=== PATIENT | male | born 1940 | race Caucasian/White ===

== ENCOUNTER 2017-04-28 14:10 | Observation (INO) | payer MEDICARE, BC ==
[2017-04-28 14:42] LABS: #Eosinphils 0.1 thou/uL (0.0-0.7); #Lymphocytes 1.3 thou/uL (1.20-3.40); #Monocytes 0.7 thou/uL (0.11-0.59); %Basophils 0.1 % (0.0-1.0); %Eosinophils 0.7 % (0.0-10.0); %Monocytes 9.1 % (0.0-10.0); Hematocrit 39.5 % (42.0-52.0); Mean Platelet Volume 7.8 fL (7.4-10.4); Red Blood Cell (RBC) Count 4.22 mill/uL (4.70-6.10); White Blood Cell (WBC) Count 8.1 thou/uL (4.8-10.8)
[2017-04-28 14:59] LABS: ALT (SGPT) 11 U/L (8-55); AST (SGOT) 12 U/L (5-34); Alkaline Phosphatase 80 U/L (40-150); Anion Gap 13 mmol/L (10-20); BUN (Urea Nitrogen) 14 mg/dL (8.4-25.7); Bilirubin, Total 0.7 mg/dL (0.2-1.2); CK (CPK) 189 U/L (30-200); Calc. Creatinine Clearance 0 mL/min (70-130); Calcium 8.9 mg/dL (7.8-10.44); Carbon Dioxide 26 mmol/L (23-31); Chloride 101 mmol/L (98-107); Estimated GFR-MDRD 74; Globulin 3.6 g/dL (2.4-3.5); Lipase 16 U/L (8-78); Protein, Total 7.4 g/dL (5.8-8.1)
[2017-04-28 15:03] LABS: Troponin I Less than 0.010 ng/mL (< 0.028)
--- NOTE | 2017-04-28 15:49 | RAD ---
PORTABLE CHEST ONE VIEW 04/28/2017 AT 2:30 p.m.: HISTORY: Chest pain. FINDINGS: Comparison is made with the exam of 12/29/2009. Change of median sternotomy again seen. The heart size is borderline. The lungs are expanded witho ut focal areas of consolidation, pneumothorax, karina pleural edema, or pleural effusions. IMPRESSION: No radiographic evidence of acute cardiopulmonary process. POS: SAYRA
[2017-04-28] MEDS ORDERED: Ondansetron ODT 4 MG TAB SL PRN (17:56)
[2017-04-28] MEDS ORDERED: Acetaminophen 325 MG TAB PO PRN (17:56)
[2017-04-28] MEDS ORDERED: Ondansetron HCl/PF 4 MG/2 ML Vial IVP PRN ×2 (17:56→18:33)
[2017-04-28 18:07] LABS: Troponin I Less than 0.010 ng/mL (< 0.028)
[2017-04-28 18:11] VITALS: BMI 23.7
[2017-04-28] MEDS ORDERED: Dextrose 50% Abboject 50 ML SYRINGE SLOW IVP PRN (18:33)
[2017-04-28] MEDS ORDERED: cloNIDine 0.1 MG TAB PO PRN (18:33)
[2017-04-28] MEDS ORDERED: hydrALAZINE 20 MG/ML VIAL SLOW IVP PRN (18:33)
[2017-04-28] MEDS ORDERED: Dextrose 5% in Water 1,000 ML IV PRN (18:33)
[2017-04-28] MEDS ORDERED: Ondansetron ODT 4 MG TAB PO PRN (18:33)
[2017-04-28] MEDS ORDERED: Nitroglycerin 0.4 MG TAB (25 Tab Bottle) SL PRN (18:33)
[2017-04-28] MEDS ORDERED: Acetaminophen 500 MG TAB PO PRN (18:33)
[2017-04-28] MEDS ORDERED: HumaLOG 300 UNITS/3 ML VIAL SC PRN ×2 (18:33)
[2017-04-28] MEDS: Famotidine 20 MG TAB PO SCH (20:45)
[2017-04-28 20:58] LABS: Troponin I Less than 0.010 ng/mL (< 0.028)
--- NOTE | 2017-04-28 23:36 | HP ---
DATE OF ADMISSION: 04/28/2017 PRIMARY CARE PROVIDER: Dr. Ivan Hudson at [facility]. PRIMARY HOT STRIP MILL SUPERVISOR: Dr. Ridge Mejia. CHIEF COMPLAINT: Chest pain. HISTORY OF PRESENT ILLNESS: This is a 77-year-old male who presents to [facility] Emergency Room complaining of central left-sided sharp chest pain that was intermitt ent initiated at rest. The patient states he had been lifting a large metal structure that holds ro und hay ilana when it suddenly fell back and struck him in the head, knocking him to the ground. Th e patient states this occurred within the last 24 hours, then noticed pain in his left anterior ches t area. The patient states the pain became more frequent lasting seconds to a minute becoming more intense. The patient became concerned about the pain in his chest stating he had a previous myocard ial infarction in 2002. Patient underwent initial PCI with angioplasty and stent placement to the m id and distal LAD in 09/2002. The patient was subsequently placed on antiplatelet therapy with Plav ix and aspirin and monitored on an outpatient basis. The patient states that in 2009, the patient u nderwent cardiac catheterization showing complete occlusion of the LAD stents previously placed in 2 003 with recommendations to undergo coronary artery bypass grafting due to severe three-vessel coron melly artery disease. Patient underwent the procedure in 12/2009, sustaining coronary artery bypass g rafting x3 vessels with left internal mammary to the diagonal, reverse saphenous vein graft to obtus e marginal, and reverse saphenous vein graft to posterior descending artery. The patient states he has been followed by his inside plant supervisor on an outpatient basis; however, states his last stress test w as possibly 4-5 years prior to this evaluation. 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 The patient denied any specific mery nge to his chronic medication regimen other than the adjustment to glipizide previously on glyburide . The patient states he takes aspirin and Plavix on a daily basis. In the Emergency Room, the ki ent underwent general evaluation including chest imaging that showed no acute infiltrate. Metabolic survey showed no evidence of elevated troponin I and EKG showed no acute changes. The patient was treated with aspirin 324 mg x1 dose and referred to the Hospitalist Service for evaluation. PAST MEDICAL HISTORY: 1. Coronary artery disease. 2. Status post myocardial infarction, status post PCI with cardiac stent placement x4 to LAD. 3. Diabetes mellitus type 2. 4. Hypertension. 5. Dyslipidemia. 6. Ischemic cardiomyopathy with ejection fraction in the 30% range in 2010. PAST SURGICAL HISTORY: 1. Status post sphincterotomy of the distal common bile duct. 2. Status post percutaneous coronary intervention with cardiac stent placement x4 in 2002. 3. Status post left heart cardiac catheterization in 2009. 4. Status post coronary artery bypass grafting x3 vessels in 2009. CURRENT MEDICATIONS: 1. Aspirin 81 mg 1 tab p.o. daily. 2. Plavix 75 mg 1 tab p.o. daily. 3. Coreg 12.5 mg p.o. b.i.d. 4. Lisinopril 10 mg 1 tab p.o. daily. 5. Zocor 40 mg p.o. at bedtime. 6. Glipizide 5 mg p.o. daily. 7. Metformin 1000 mg p.o. b.i.d. 8. Januvia 100 mg p.o. daily. ALLERGIES: No known drug allergies. FAMILY HISTORY: Positive for hypertension. SOCIAL HISTORY: The patient is , accompanied by multiple family members in the hospital. sides near [place], [place]. 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 No current alcohol, tobacco or illicit drug use. Functional of all activities of daily living. REVIEW OF SYSTEMS: The following complete review of systems was negative, unless otherwise mentione d in the HPI or below: Constitutional: Weight loss or gain, ability to conduct usual activities. Skin: Rash, itching. Eyes: Double vision, pain. ENT/Mouth: Nose bleeding, neck stiffness, pain, tenderness. Cardiovas cular: Palpitations, dyspnea on exertion, orthopnea. Respiratory: Shortness of breath, wheezing, cough, hemoptysis, fever or night sweats. Gastrointestinal: Poor appetite, abdominal pain, heartbu rn, nausea, vomiting, constipation, or diarrhea. Genitourinary: Urgency, frequency, dysuria, noctu dioni. Musculoskeletal: Pain, swelling. Neurologic/Psychiatric: Anxiety, depression. Allergy/Immu nologic: Skin rash, bleeding tendency. PHYSICAL EXAMINATION: VITAL SIGNS: Currently, blood pressure 115/66, pulse 64, respiratory rate 18, temperature 98.6 degr ees Fahrenheit, O2 saturation 98% on room air. GENERAL APPEARANCE: This is a 77-year-old male, alert and oriented x3, pleasant, conversa nt, in no acute distress. HEENT: Pupils are equal, round, and reactive to light and accommodation. Extraocular muscles are i ntact. No scleral icterus, no conjunctival injection. Nares patent. OP is clear. Teeth in good r epair. NECK: Supple, no cervical adenopathy, no thyromegaly, no carotid bruits, no JVD appreciated. Cervi kaylyn spine with full active and passive range of motion. CHEST: Lungs are clear to auscultation bilaterally. CARDIOVASCULAR: S1, S2, without noted murmur. ABDOMEN: Rounded, soft, nontender, nondistended. Bowel sounds are positive in all four quadrants. There is no hepatosplenomegaly, no abdominal bruits, no rebound or guarding appreciated. EXTREMITIES: Warm and dry with good turgor. No clubbing, cyanosis or asymmetric edema appreciated. Pulses palpable distally at the dorsalis pedis, posterior tibial, and popliteal arteries bilateral ly. Capillary refill less than 2 seconds. NEUROLOGIC: Cranial nerves II-XII are grossly intact. No focal or lateralizing signs appreciated. PERTINENT LABORATORY AND X-RAY FINDINGS: Basic metabolic profile within normal limits. Glucose 119 , alkaline phosphatase 80. LFTs within normal limits. Troponin I negative x2. Albumin 3.8, lipase 16. CBC showed a white blood cell count 8.1, hemoglobin 14, hematocrit 40, platelet count 180 with normal differential. Portable chest x-ray dated 04/28/2017 showed no acute cardiopulmonary process . EKG dated 04/28/2017 by my interpretation shows a sinus mechanism with heart rates in the 70s. A ttenuated R waves in the entire precordium. Normal axis. No acute ST-T wave changes appreciated. Old T-wave inversion noted in V5 and V6. ASSESSMENT AND PLAN: 1. Chest pain. The patient will be placed in observation status. We will proceed with Cardiolite stress test in the a.m. Check fasting lipid profile. Continue aspirin and Plavix. No current evid ence to suggest acute coronary syndrome. 2. Hypertension. Resume home antihypertensive regimen including, Coreg 12.5 mg p.o. b.i.d. and lis inopril 10 mg p.o. daily. Continue serial blood pressure assessment. 3. Diabetes mellitus type 2. Insulin sliding scale for reflexive coverage. Continue glipizide and Januvia. Accu-Cheks before meals and at bedtime. ADA diet. 4. Hyperlipidemia. Check fasting lipid profile in the a.m. Continue Zocor 40 mg p.o. at bedtime. 5. Prophylaxis. Sequential compression devices while in bed. Pepcid 20 mg p.o. b.i.d. 6. Code status is FULL. Surrogate medical decision maker is patient's spouse.
[2017-04-29 04:11] VITALS: TEMP 98.8
[2017-04-29 04:54] LABS: Anion Gap 11 mmol/L (10-20); BUN (Urea Nitrogen) 12 mg/dL (8.4-25.7); Calc. Creatinine Clearance 75 mL/min (70-130); Carbon Dioxide 28 mmol/L (23-31); Chloride 103 mmol/L (98-107); Cholesterol 124 mg/dl (< 200 Desired); Estimated GFR-MDRD 85; LDL Cholesterol, Calculated 72 mg/dL; Mean Platelet Volume 7.8 fL (7.4-10.4); Neutrophil 56 % (42-75); Reactive Lymphocytes 1 % (0-10); Red Blood Cell (RBC) Count 3.95 mill/uL (4.70-6.10); White Blood Cell (WBC) Count 6.9 thou/uL (4.8-10.8)
[2017-04-29] MEDS ORDERED: Aspirin 325 MG TAB PO SCH (08:00)
[2017-04-29 08:15] VITALS: BP 131/60
[2017-04-29] MEDS: Famotidine 20 MG TAB PO SCH (09:37)
[2017-04-29] MEDS ORDERED: ADENOSINE 60 MG/20 ML VIAL ONE (12:00)
--- NOTE | 2017-04-29 12:41 | NM ---
CARDIAC SPECT: CLINICAL HISTORY: 77-year-old male with chest pain, coronary artery disease, DE, CABG, stent placement, diabetes, hype rtension, and dyslipidemia. TECHNIQUE: A myocardial perfusion scan was performed using the single isotope one day protocol with technetium- 99m sestamibi. 9 mCi were injected intravenously for the rest exam followed by 31 mCi for the stress exam. Pharmacologic stress with Adenosine was monitored and interpreted by Dr. Herrera. FINDINGS: There are fixed defects in the apex, distal anteroseptal wall, mid anterior wall, and distal inferol ateral wall. No reversible defects are identified. GATED SPECT LVEF: 40%. WALL MOTION EXAM: Global hypokinesis. IMPRESSION: 1. No evidence of reversible ischemia. 2. Scarring involving the apex, distal anteroseptal, mid anterior, and distal inferolateral meza. POS: VALENTIN
--- NOTE | 2017-04-29 13:11 | PDOC.PN ---
- Subjective Encounter Start Date: 04/29/17 Encounter Start Time: 13:10 Mr. Arroyo is feeling much better today. He denies chest pain or difficulty breathing. - Objective Resuscitation Status: Resuscitation Status FULL:Full Resuscitation MAR Reviewed: Yes Vital Signs & Weight: Vital Signs (12 hours) Temp Pulse Resp BP Pulse Ox 04/29/17 08:00 98.8 F 61 131/60 95 04/29/17 07:45 98.8 F 61 18 04/29/17 04:10 98.8 F 63 18 133/60 96 I&O: 04/28/17 04/29/17 04/30/17 06:59 06:59 06:59 Intake Total 480 Output Total 0 Balance 480 Result Diagrams: 04/29/17 04:05 04/29/17 04:05 Additional Labs: Accuchecks 04/28/17 20:45 POC Glucose 151 H Phys Exam - Physical Examination HEENT: PERRLA Respiratory: no wheezing, no rales, no rhonchi, clear to auscultation bilateral Cardiovascular: RRR, no significant murmur Gastrointestinal: soft, non-tender, positive bowel sounds Musculoskeletal: no edema Dx/Plan (1) Chest pain Code(s): R07.9 - CHEST PAIN, UNSPECIFIED Status: Acute (2) Musculoskeletal strain Code(s): T14.8XXA - OTHER INJURY OF UNSPECIFIED BODY REGION, INITIAL ENCOUNTER Status: Acute (3) Coronary artery disease Code(s): I25.10 - ATHSCL HEART DISEASE OF [place] CORONARY ARTERY W/O ANG PCTRS Status: Acute (4) Hypertension Code(s): I10 - ESSENTIAL (PRIMARY) HYPERTENSION Status: Acute (5) Diabetes mellitus type 2 in nonobese Code(s): E11.9 - TYPE 2 DIABETES MELLITUS WITHOUT COMPLICATIONS Status: Acute - Plan * Chest pain- patient's stress test is negative * I suspect the patient pain may be due to a musculoskeletal strain * stable for discharge home.
--- NOTE | 2017-04-29 15:02 | DIS ---
DATE OF ADMISSION: 04/28/2017 DATE OF DISCHARGE: 04/29/2017 PRIMARY CARE PHYSICIAN: Dr. Ivan Hudson DISCHARGE DISPOSITION: Home. PRIMARY DISCHARGE DIAGNOSES: 1. Chest pain. 2. Musculoskeletal strain. 3. Coronary artery disease. 4. Diabetes mellitus, type 2. 5. Hypertension. 6. Dyslipidemia. 7. Ischemic cardiomyopathy with last known ejection fraction of 30%. DISCHARGE MEDICATIONS: The same as that on admission and includes aspirin 81 mg daily, Plavix 75 mg daily, metformin 1000 mg twice a day, Januvia 100 mg daily, glipizide extended release 5 mg daily, simvastatin 40 mg daily, lisinopril 10 mg daily, and carvedilol 12.5 mg twice a day. PROCEDURES DONE DURING THE ADMISSION: The patient had a nuclear stress test which was negative for any reversible ischemia. There was some scarring involving the apex, distal anterior septal, mid an terior, and distal inferior lateral wall CODE STATUS: FULL CODE. ALLERGIES: No known drug allergies. HOSPITAL COURSE: Ms. Arroyo is a pleasant 77-year-old gentleman who was doing some work on his f arm when he was trying to lift a large metal hay bale mack and it fell back and struck him in the head and knocked him to the ground. He began having chest pain after this. He was concerned becaus e he has a history of heart disease, but may be the chest pain could be related to his heart. He wa s placed in observation and ruled out and a nuclear stress test was negative. He is feeling much be tter today than yesterday and it is suspected that his symptoms are likely related to the accident h e had yesterday plus he was lifting quite a few heavy bags of feed as well, so therefore it is suspe cted that the pain is related to a musculoskeletal strain. There will be no changes in his home med ications and he is subsequently being discharged home to have a close followup with Dr. Hudson in 1-2 weeks.
== END 2017-04-29 13:59 | disposition home or self-care (01) ==
LOC: ERS 14:10 → 2SW 18:02
PROVIDERS: ADMIT Family Medicine; ATTEND Family Medicine
DX: R07.9 Chest pain, unspecified (principal); I25.10 Atherosclerotic heart disease of native coronary artery without angina pectoris; E11.9 Type 2 diabetes mellitus without complications; E78.5 Hyperlipidemia, unspecified; I11.9 Hypertensive heart disease without heart failure; I25.2 Old myocardial infarction; T14.8XXA Other injury of unspecified body region, initial encounter; Z79.84 Long term (current) use of oral hypoglycemic drugs; Z79.02 Long term (current) use of antithrombotics/antiplatelets; Z79.82 Long term (current) use of aspirin; Z79.899 Other long term (current) drug therapy; Z95.1 Presence of aortocoronary bypass graft; Z95.818 Presence of other cardiac implants and grafts; Z98.890 Other specified postprocedural states
CPT/HCPCS: 71010; 78452; 80048; 80053; 80061; 82550; 82553; 82962; 83690; 84484 ×2; 85007; 85025; 85027; 93005; 93017; 94760 ×2; 99285; A9500; G0378; 36415; 36416; J0153

== ENCOUNTER 2019-12-23 17:09 | Emergency (ER) | payer MEDICARE, BC ==
[~2019-12-23 17:09] MED LIST: Iopamidol-370 76% 500 ML 1 ML ONE
[2019-12-23 18:14] LABS: #Monocytes 0.6 thou/uL (0.11-0.59); %Basophils 0.1 % (0.0-1.0); %Eosinophils 0.5 % (0.0-10.0); %Lymphocytes 14.2 % (21.0-51.0); %Monocytes 9.6 % (0.0-10.0); %Neutrophils 75.6 % (42.0-75.0); Hemoglobin 12.2 g/dL (14.0-18.0); Mean Corpuscular HGB CONC 33.9 g/dL (32.0-36.0); Mean Corpuscular Volume 97.5 fL (78.0-98.0); RBC Distribution Width 11.4 % (11.5-14.5); Red Blood Cell (RBC) Count 3.68 mill/uL (4.70-6.10); White Blood Cell (WBC) Count 6.7 thou/uL (4.8-10.8)
[2019-12-23] MEDS ORDERED: Dextrose 50% Abboject 50 ML SYRINGE ONE (18:23)
[2019-12-23 18:33] LABS: Mean Platelet Volume 8.2 fL (7.4-10.4); Platelet Count 119 thou/uL (130-400); Platelet Morphology Comment Appears Decreased; RBC Morphology Normal
--- NOTE | 2019-12-23 18:40 | RAD ---
SINGLE VIEW OF THE CHEST: 12/23/19 COMPARISON: 04/28/17. HISTORY: Weakness and altered mental status. Fever yesterday. FINDINGS: Single view of the chest shows a normal sized cardiomediastinal silhouette. The patient is status pos t sternotomy. There is no evidence of consolidation, mass or pleural effusion. IMPRESSION: No evidence of acute cardiopulmonary disease. POS: EAA
--- NOTE | 2019-12-23 18:57 | CT ---
CT BRAIN 12/23/19 PROVIDED CLINICAL HISTORY: Altered mental status. FINDINGS: The ventricular system appears normal in size and morphology. There is no evidence for intracranial h emorrhage or mass effect. The extracranial soft tissues and osseous structures demonstrate an unremar kable CT appearance. IMPRESSION: No evidence for intracranial hemorrhage or mass effect. POS: GEORGE
[2019-12-23 20:03] LABS: Bilirubin Negative (Negative); Blood, Urine Negative (Negative); Clarity Turbid (Clear); Glucose, Urine (Dipstick) 300 mg/dL (Negative); Leukocyte Negative Leu/uL (Negative); Nitrite Negative (Negative); Protein, Urine (Dipstick) 20 mg/dL (Neg-Trace); Urobilinogen Normal mg/dL (Less than 2)
[2019-12-23 20:21] LABS: ALT (SGPT) 101 U/L (8-55); AST (SGOT) 68 U/L (5-34); Albumin 3.5 g/dL (3.4-4.8); Alkaline Phosphatase 116 U/L (40-110); Anion Gap 14 mmol/L (10-20); BUN (Urea Nitrogen) 26 mg/dL (8.4-25.7); Bilirubin, Total 0.5 mg/dL (0.2-1.2); Calc. Creatinine Clearance 0 mL/min (70-130); Calcium 8.1 mg/dL (7.8-10.44); Carbon Dioxide 22 mmol/L (23-31); Chloride 101 mmol/L (98-107); Estimated GFR-MDRD 45; Globulin 2.9 g/dL (2.4-3.5); Glucose 164 mg/dL (83-110); Potassium 4.2 mmol/L (3.5-5.1); Protein, Total 6.4 g/dL (5.8-8.1); Sodium 133 mmol/L (136-145)
--- NOTE | 2019-12-23 21:03 | CT ---
CT ANGIOGRAM CHEST AND ABDOMEN WITH IV CONTRAST AND 3D MIP RECONSTRUCTIONS: 12/23/19 PROVIDED CLINICAL HISTORY: Fever and generalized weakness. FINDINGS: The aorta is nonaneurysmal. There is no evidence for aortic dissection. There is left ventricular api kaylyn thinning, similar to 03/24/14. Median sternotomy changes and CABG changes are seen. The lungs are free of significant opacity. There is no pleural fluid or pneumothorax apparent. The solid abdominal organs are suboptimally evaluated in the arterial phase of contrast but demonstra antony no evidence for an acute abnormality. Several subcentimeter foci of arterial enhancement are seen within the right hepatic lobe, nonspecific. There is no bowel dilatation, inflammatory fat stranding , free fluid or free air apparent within the abdomen. Atherosclerotic vascular calcification in eccen tric mural plaque are seen involving the infrarenal abdominal aorta. There is no evidence for aneurys m. The mesenteric and renal vessels demonstrate no significant stenosis. The osseous structures demonstrate no concerning lytic or blastic lesions. Conspicuous duodenal diverticulum involving the junction of the second and third portions of the duod enum. IMPRESSION: 1. No evidence for aortic dissection. 2. Multiple subcentimeter foci of arterial enhancement involving the right hepatic lobe, nonspec ific. Small flash filling hematomata and hypervascular metastatic lesions could be considered. Follow -up is recommended. POS: GEOREG
== END 2019-12-23 22:41 | disposition home or self-care (01) ==
LOC: ERS 17:09
DX: E11.649 Type 2 diabetes mellitus with hypoglycemia without coma (principal); R53.1 Weakness; I10 Essential (primary) hypertension; I25.2 Old myocardial infarction; Z79.899 Other long term (current) drug therapy; Z79.84 Long term (current) use of oral hypoglycemic drugs
CPT/HCPCS: 36415; 36416; 70450; 71045; 71275; 72191; 74175; 80053; 81003; 82550; 83880; 84484; 85025; 93005; 96374; Q9967

== ENCOUNTER 2019-12-27 10:19 | Emergency (ER) | payer MEDICARE, BC ==
[2019-12-27 11:25] LABS: #Eosinphils 0.1 thou/uL (0.0-0.7); #Lymphocytes 1.2 thou/uL (1.20-3.40); #Monocytes 0.6 thou/uL (0.11-0.59); #Neutrophils 4.1 thou/uL (1.40-6.50); %Basophils 0.3 % (0.0-1.0); %Lymphocytes 20.3 % (21.0-51.0); %Neutrophils 68.5 % (42.0-75.0); Hemoglobin 11.8 g/dL (14.0-18.0); Mean Corpuscular HGB CONC 33.2 g/dL (32.0-36.0); Mean Corpuscular Hemoglobin 32.1 pg (27.0-31.0); Mean Corpuscular Volume 96.7 fL (78.0-98.0); Mean Platelet Volume 9.3 fL (7.4-10.4); Platelet Count 137 thou/uL (130-400); RBC Distribution Width 11.4 % (11.5-14.5); Red Blood Cell (RBC) Count 3.67 mill/uL (4.70-6.10)
[2019-12-27 11:49] LABS: ALT (SGPT) 47 U/L (8-55); AST (SGOT) 44 U/L (5-34); Albumin 3.6 g/dL (3.4-4.8); Alkaline Phosphatase 130 U/L (40-110); Anion Gap 18 mmol/L (10-20); BUN (Urea Nitrogen) 25 mg/dL (8.4-25.7); Bilirubin, Total 0.4 mg/dL (0.2-1.2); Calc. Creatinine Clearance 0 mL/min (70-130); Calcium 8.4 mg/dL (7.8-10.44); Carbon Dioxide 22 mmol/L (23-31); Chloride 100 mmol/L (98-107); Estimated GFR-MDRD 40; Globulin 3.5 g/dL (2.4-3.5); Glucose 237 mg/dL (83-110); Lipase 21 U/L (8-78); Potassium 5.2 mmol/L (3.5-5.1); Protein, Total 7.1 g/dL (5.8-8.1); Sodium 135 mmol/L (136-145)
== END 2019-12-27 13:22 | disposition home or self-care (01) ==
LOC: ERS 10:19
DX: R10.13 Epigastric pain (principal); E11.9 Type 2 diabetes mellitus without complications; I10 Essential (primary) hypertension; I25.2 Old myocardial infarction; Z79.84 Long term (current) use of oral hypoglycemic drugs; Z79.899 Other long term (current) drug therapy; Z79.891 Long term (current) use of opiate analgesic; Z79.82 Long term (current) use of aspirin
CPT/HCPCS: 36416; 80053; 83690; 84484; 85025; 93005

== ENCOUNTER 2020-07-13 17:10 | Emergency (ER) | payer MEDICARE, BC ==
--- NOTE | 2020-07-13 18:28 | ULT ---
LEFT LOWER EXTREMITY VENOUS DUPLEX EXAM: 07/13/20 HISTORY: Left leg pain and swelling. Real time color Doppler evaluation of the left lower extremity was performed from groin to calf. This includes evaluation of the common femoral, superficial and profunda femoral, saphenous, popliteal an d posterior tibial veins. This shows a patent deep venous system. There is normal compressibility and augmentation. There is no evidence of DVT. IMPRESSION: No evidence of DVT of the left lower extremity. POS: ANNETTE
[2020-07-13 18:54] LABS: #Eosinphils 0.1 thou/uL (0.0-0.7); #Lymphocytes 1.8 thou/uL (1.20-3.40); #Monocytes 0.5 thou/uL (0.11-0.59); %Basophils 0.3 % (0.0-1.0); %Eosinophils 1.5 % (0.0-10.0); %Lymphocytes 27.8 % (21.0-51.0); %Monocytes 7.9 % (0.0-10.0); %Neutrophils 62.6 % (42.0-75.0); Hemoglobin 10.4 g/dL (14.0-18.0); Mean Corpuscular HGB CONC 34.7 g/dL (32.0-36.0); Mean Corpuscular Hemoglobin 32.4 pg (27.0-31.0); Mean Corpuscular Volume 93.5 fL (78.0-98.0); Mean Platelet Volume 8.5 fL (7.4-10.4); Platelet Count 153 thou/uL (130-400); RBC Distribution Width 12.8 % (11.5-14.5); White Blood Cell (WBC) Count 6.3 thou/uL (4.8-10.8)
[2020-07-13 19:13] LABS: Anion Gap 12 mmol/L (10-20); BUN (Urea Nitrogen) 22 mg/dL (8.4-25.7); Calc. Creatinine Clearance 0 mL/min (70-130); Calcium 8.3 mg/dL (7.8-10.44); Carbon Dioxide 28 mmol/L (23-31); Chloride 103 mmol/L (98-107); Glucose 210 mg/dL (83-110); Potassium 4.1 mmol/L (3.5-5.1); Sodium 139 mmol/L (136-145)
--- NOTE | 2020-07-13 19:20 | RAD ---
LEFT KNEE FOUR VIEWS: 07/13/20 HISTORY: Knee pain status post fall. There are arthritic changes of the knee. There is no signs of fracture, dislocation, or joint effusion. There appears to be some soft tissue swelling anteriorly. IMPRESSION: No acute injury. POS: ANNETTE
== END 2020-07-13 20:34 | disposition home or self-care (01) ==
LOC: ERS 17:10
DX: S80.02XA Contusion of left knee, initial encounter (principal); S70.12XA Contusion of left thigh, initial encounter; R79.1 Abnormal coagulation profile; E11.9 Type 2 diabetes mellitus without complications; I10 Essential (primary) hypertension; I25.10 Atherosclerotic heart disease of native coronary artery without angina pectoris; I25.2 Old myocardial infarction; Z79.82 Long term (current) use of aspirin; Z79.84 Long term (current) use of oral hypoglycemic drugs; Z79.899 Other long term (current) drug therapy; W01.198A Fall on same level from slipping, tripping and stumbling with subsequent striking against other object, initial encounter
CPT/HCPCS: 36415; 80048; 85025; 85379; 85652; 86140

== ENCOUNTER 2022-05-29 09:12 | Emergency (ER) | payer MEDICARE, BC | END 2022-05-29 10:10 | disposition home or self-care (01) | LOC: ERS 09:12 | DX: L03.032 Cellulitis of left toe (principal); I10 Essential (primary) hypertension; E11.9 Type 2 diabetes mellitus without complications | CPT/HCPCS: 10060 ==

== ENCOUNTER 2023-11-24 17:54 | Inpatient (IN) | payer BC, MEDICARE ==
[2023-11-24 19:18] LABS: #Basophils Less than 0.03 10x3/uL (0.0-0.2); %Basophils 0.3 % (0.0-1.0); %Eosinophils 1.1 % (0.0-10.0); %Lymphocytes 30.6 % (21.0-51.0); %Monocytes 9.3 % (0.0-10.0); Hematocrit 36.2 % (42.0-52.0); Mean Corpuscular HGB CONC 35.9 g/dL (32.0-36.0); Mean Corpuscular Hemoglobin 31.2 pg (27.0-31.0); Mean Corpuscular Volume 86.8 fL (78.0-98.0); Mean Platelet Volume 11.4 fL (7.4-10.4); Platelet Count 173 10x3/uL (130-400); Red Blood Cell (RBC) Count 4.17 mill/uL (4.70-6.10)
[2023-11-24 19:36] LABS: Troponin I 0.011 ng/mL (< 0.028)
[2023-11-24 19:38] LABS: ALT (SGPT) 9 U/L (8-55); AST (SGOT) 12 U/L (5-34); Albumin 3.6 g/dL (3.4-4.8); Alkaline Phosphatase 106 U/L (40-110); Anion Gap 17 mmol/L (10-20); BUN (Urea Nitrogen) 32 mg/dL (8.4-25.7); Bilirubin, Total 0.6 mg/dL (0.2-1.2); Calc. Creatinine Clearance 0 mL/min (70-130); Calcium 9.3 mg/dL (7.8-10.44); Carbon Dioxide 24 mmol/L (23-31); Chloride 98 mmol/L (98-107); Estimated GFR 38; Globulin 3.6 g/dL (2.4-3.5); Glucose 313 mg/dL (83-110); Potassium 4.9 mmol/L (3.5-5.1); Protein, Total 7.2 g/dL (5.8-8.1); Sodium 134 mmol/L (136-145)
[2023-11-24] MEDS ORDERED: Senokot S 8.6-50 MG TAB PO PRN (20:58)
[2023-11-24] MEDS ORDERED: Glucagon 1 MG/ML KIT IM PRN (20:59)
[2023-11-24] MEDS ORDERED: Dextrose 5% in Water 1,000 ML IV PRN (20:59)
[2023-11-24] MEDS ORDERED: Dextrose 50% Abboject 50 ML SYRINGE SLOW IVP PRN (20:59)
[2023-11-24] MEDS ORDERED: HumaLOG 300 UNITS/3 ML VIAL SC PRN (20:59)
[2023-11-24] MEDS ORDERED: Ondansetron PF 4 MG/2 ML Vial IVP PRN (20:59)
[2023-11-24] MEDS ORDERED: Acetaminophen 325 MG TAB PO PRN (20:59)
[2023-11-24 23:35] LABS: Troponin I Less than 0.010 ng/mL (< 0.028)
[2023-11-25 00:09] VITALS: BMI 25.7
[2023-11-25 01:43] LABS: Troponin I Less than 0.010 ng/mL (< 0.028)
[2023-11-25 04:23] LABS: #Basophils Less than 0.03 10x3/uL (0.0-0.2); %Basophils 0.3 % (0.0-1.0); %Eosinophils 1.6 % (0.0-10.0); %Lymphocytes 33.8 % (21.0-51.0); %Monocytes 9.9 % (0.0-10.0); Hematocrit 35.1 % (42.0-52.0); Hemoglobin 12.2 g/dL (14.0-18.0); Mean Corpuscular HGB CONC 34.8 g/dL (32.0-36.0); Mean Corpuscular Hemoglobin 31.2 pg (27.0-31.0); Mean Corpuscular Volume 89.8 fL (78.0-98.0); Mean Platelet Volume 11.1 fL (7.4-10.4); Platelet Count 145 10x3/uL (130-400); RBC Distribution Width 12.1 % (11.5-14.5); Red Blood Cell (RBC) Count 3.91 mill/uL (4.70-6.10)
[2023-11-25] MEDS: Atorvastatin Calcium 20 MG TAB PO SCH (05:08)
[2023-11-25] MEDS: Heparin 5,000 UNITS/ML VIAL SC SCH (05:09)
[2023-11-25 05:18] LABS: Anion Gap 14 mmol/L (10-20); BUN (Urea Nitrogen) 28 mg/dL (8.4-25.7); Calc. Creatinine Clearance 42 mL/min (70-130); Calcium 8.7 mg/dL (7.8-10.44); Carbon Dioxide 22 mmol/L (23-31); Chloride 101 mmol/L (98-107); Estimated GFR 44; Glucose 266 mg/dL (83-110); Potassium 3.9 mmol/L (3.5-5.1); Sodium 133 mmol/L (136-145)
[2023-11-25] MEDS ORDERED: Lidocaine 2% Viscous Solution 20 ML, Aluminum & Magnesium Hydroxide 30 ML, Donnatal Eli... SSW SCH (08:30)
[2023-11-25] MEDS: Aspirin Chewable 81 MG TAB PO SCH (08:44)
[2023-11-25] MEDS: glipiZIDE XL 5 mg ER.TAB PO SCH (08:44)
[2023-11-25] MEDS: Lisinopril 10 MG TAB PO SCH (08:45)
[2023-11-25] MEDS: Pantoprazole DR 40 MG TAB PO SCH (08:47)
[2023-11-25] MEDS: Clopidogrel Bisulfate 75 MG TAB PO SCH (08:48)
[2023-11-25] MEDS ORDERED: Regadenoson 0.4 MG/5 ML SYRINGE ONE (09:55)
[2023-11-25 11:11] LABS: Hemoglobin A1c 10.7 % (4.0-6.0)
[2023-11-25] MEDS: MAG SSW SCH (17:34)
[2023-11-25] MEDS: DONNATAL SSW SCH (17:34)
[2023-11-25] MEDS: LIDOCAINE 2% SSW SCH (17:34)
[2023-11-25] MEDS: ALUM SSW SCH (17:34)
[2023-11-25] MEDS: VISCOUS SSW SCH (17:34)
[2023-11-25] MEDS ORDERED: Sodium Chloride 0.9% 250 ML IV SCH (18:00)
[2023-11-25] MEDS ORDERED: Communication Order-Pharmacy FS SCH (18:00)
[2023-11-25] MEDS: HumaLOG 300 UNITS/3 ML VIAL SC PRN (21:51)
[2023-11-26 05:48] LABS: #Basophils Less than 0.03 10x3/uL (0.0-0.2); %Basophils 0.2 % (0.0-1.0); %Eosinophils 0.6 % (0.0-10.0); %Lymphocytes 20.1 % (21.0-51.0); %Monocytes 7.1 % (0.0-10.0); %Neutrophils 71.5 % (42.0-75.0); Hematocrit 37.4 % (42.0-52.0); Mean Corpuscular HGB CONC 34.8 g/dL (32.0-36.0); Mean Corpuscular Hemoglobin 31.3 pg (27.0-31.0); Mean Corpuscular Volume 89.9 fL (78.0-98.0); Mean Platelet Volume 11.5 fL (7.4-10.4); Platelet Count 176 10x3/uL (130-400); Red Blood Cell (RBC) Count 4.16 mill/uL (4.70-6.10)
[2023-11-26 06:02] LABS: Anion Gap 16 mmol/L (10-20); BUN (Urea Nitrogen) 27 mg/dL (8.4-25.7); Calc. Creatinine Clearance 46 mL/min (70-130); Calcium 9.4 mg/dL (7.8-10.44); Carbon Dioxide 26 mmol/L (23-31); Cardiac Risk 8.4 (Less than 4.5); Chloride 101 mmol/L (98-107); Cholesterol 228 mg/dl (< 200 Desired); Estimated GFR 49; Glucose 128 mg/dL (83-110); HDL Cholesterol 27 mg/dL (>60 Neg Risk); LDL Cholesterol, Calculated 158 mg/dL; Potassium 4.3 mmol/L (3.5-5.1); Sodium 139 mmol/L (136-145); Triglycerides 215 mg/dL (Less than 150)
[2023-11-26] MEDS: Pantoprazole DR 40 MG TAB PO SCH (08:07)
[2023-11-26] MEDS ORDERED: Heparin 10,000 UNITS/ 10 ML VIAL ONE (09:04)
[2023-11-26] MEDS ORDERED: fentaNYL 50 mcg/mL 1 mL Vial ONE (11:25)
[2023-11-26] MEDS ORDERED: Midazolam HCl 2 mg/2 ml Vial ONE (11:25)
[2023-11-26] MEDS ORDERED: Sodium Chloride 0.9% 200 ML IV PRN (12:07)
[2023-11-26] MEDS ORDERED: Acetaminophen/Codeine 30-300mg Tablet PO PRN (12:07)
[2023-11-26] MEDS ORDERED: Nitroglycerin 0.4 MG TAB (25 Tab Bottle) SL PRN (12:07)
[2023-11-26] MEDS: Sodium Chloride 0.9% 250 ML IV SCH (13:40)
[2023-11-26] MEDS: Ezetimibe 10 MG TAB PO SCH (14:39)
[2023-11-26 15:40] VITALS: BP 127/61; TEMP 98.2
[2023-11-26] MEDS ORDERED: Atorvastatin Calcium 40 MG TAB PO SCH (21:00)
[2023-11-27] MEDS ORDERED: Sacubitril 24MG/Valsartan 26 MG TAB PO SCH (09:00)
[2023-11-27] MEDS ORDERED: Ezetimibe 10 MG TAB PO SCH (09:00)
== END 2023-11-26 19:59 | disposition home or self-care (01) | DRG 287 ==
LOC: ERS 17:54 → 2SW 20:58 → OBSVTOIN 11-26 08:32
PROVIDERS: ADMIT Internal Medicine; ATTEND Internal Medicine
PROC: 4A023N7 Measurement of Cardiac Sampling and Pressure, Left Heart, Percutaneous Approach (ICD-10-PCS; principal; 2023-11-26)
PROC: B2111ZZ Fluoroscopy of Multiple Coronary Arteries using Low Osmolar Contrast (ICD-10-PCS; 2023-11-26)
PROC: B2151ZZ Fluoroscopy of Left Heart using Low Osmolar Contrast (ICD-10-PCS; 2023-11-26)
DX: R07.89 Other chest pain (principal); N17.9 Acute kidney failure, unspecified; I50.22 Chronic systolic (congestive) heart failure; I13.0 Hypertensive heart and chronic kidney disease with heart failure and stage 1 through stage 4 chronic kidney disease, or unspecified chronic kidney disease; I42.0 Dilated cardiomyopathy; I42.8 Other cardiomyopathies; N18.30 Chronic kidney disease, stage 3 unspecified; I25.10 Atherosclerotic heart disease of native coronary artery without angina pectoris; E11.22 Type 2 diabetes mellitus with diabetic chronic kidney disease; E78.5 Hyperlipidemia, unspecified; E11.65 Type 2 diabetes mellitus with hyperglycemia; Z79.82 Long term (current) use of aspirin; Z79.899 Other long term (current) drug therapy; Z95.1 Presence of aortocoronary bypass graft; Z90.49 Acquired absence of other specified parts of digestive tract; I25.2 Old myocardial infarction
CPT/HCPCS: 36415; 36416; 71045; 78452; 80048; 80053; 80061; 83036; 84484; 85025; 93005; 93017; 93306; 93798; A9502; J1644; J1815; J2250; J2785; J3010; J7030

== ENCOUNTER 2025-01-30 07:58 | Inpatient (IN) | payer MEDICARE ==
[2025-01-30 08:56] LABS: #Basophils Less than 0.03 10x3/uL (0.0-0.2); #Eosinophils 0.15 10x3/uL (0.0-0.7); #Monocytes 0.87 10x3/uL (0.11-0.59); #Neutrophils 4.62 10x3/uL (1.40-6.50); %Basophils 0.3 % (0.0-1.0); %Eosinophils 2.0 % (0.0-10.0); %Lymphocytes 25.0 % (21.0-51.0); %Monocytes 11.5 % (0.0-10.0); %Neutrophils 60.8 % (42.0-75.0); Hematocrit 33.5 % (42.0-52.0); Hemoglobin 10.8 g/dL (14.0-18.0); Mean Corpuscular Hemoglobin 30.1 pg (27.0-31.0); Mean Corpuscular Volume 93.3 fL (78.0-98.0); Platelet Count 152 10x3/uL (130-400); Red Blood Cell (RBC) Count 3.59 mill/uL (4.70-6.10); White Blood Cell (WBC) Count 7.59 10x3/uL (4.8-10.8)
[2025-01-30 09:20] LABS: ALT (SGPT) 24 U/L (Less than 45); AST (SGOT) 29 U/L (11-34); Albumin 3.1 g/dL (3.1-4.5); Alkaline Phosphatase 86 U/L (40-110); Anion Gap 13 mmol/L (10-20); BUN (Urea Nitrogen) 25 mg/dL (8.4-25.7); Bilirubin, Total 0.5 mg/dL (0.3-1.2); CK (CPK) 35 U/L (30-200); Calc. Creatinine Clearance 0 mL/min (70-130); Calcium 8.6 mg/dL (7.8-10.44); Carbon Dioxide 24 mmol/L (23-31); Chloride 105 mmol/L (98-107); Globulin 3.8 g/dL (2.4-3.5); Glucose 116 mg/dL (83-110); Potassium 4.3 mmol/L (3.5-5.1); Sodium 138 mmol/L (136-145)
[2025-01-30] MEDS ORDERED: Iopamidol-370 76% 500 ML MDV (1 ML CHARGE) ONE (11:18)
[2025-01-30] MEDS ORDERED: Ondansetron PF 4 MG/2 ML Vial IVP PRN (14:00)
[2025-01-30] MEDS ORDERED: hydrALAZINE 20 MG/ML VIAL SLOW IVP PRN (14:00)
[2025-01-30] MEDS ORDERED: Glucagon 1 MG/ML KIT IM PRN (18:26)
[2025-01-30] MEDS ORDERED: Dextrose 50% Abboject 50 ML SYRINGE SLOW IVP PRN (18:26)
[2025-01-30] MEDS ORDERED: Famotidine/PF 20 mg/2ml Vial ONE (21:07)
[2025-01-30] MEDS: Rosuvastatin 20 MG TAB PO SCH (21:32)
[2025-01-30] MEDS: Famotidine/PF 20 mg/2ml Vial SLOW IVP SCH (21:33)
[2025-01-30] MEDS: Acetaminophen 325 MG TAB PO PRN (23:04)
[2025-01-31 00:33] VITALS: BMI 25.0
[2025-01-31 07:09] LABS: #Basophils Less than 0.03 10x3/uL (0.0-0.2); #Eosinophils 0.11 10x3/uL (0.0-0.7); #Monocytes 0.52 10x3/uL (0.11-0.59); #Neutrophils 2.54 10x3/uL (1.40-6.50); %Basophils 0.4 % (0.0-1.0); %Eosinophils 2.3 % (0.0-10.0); %Lymphocytes 34.2 % (21.0-51.0); %Monocytes 10.7 % (0.0-10.0); %Neutrophils 52.0 % (42.0-75.0); Hematocrit 33.7 % (42.0-52.0); Hemoglobin 11.0 g/dL (14.0-18.0); Mean Corpuscular Hemoglobin 30.3 pg (27.0-31.0); Mean Corpuscular Volume 92.8 fL (78.0-98.0); Platelet Count 162 10x3/uL (130-400); Red Blood Cell (RBC) Count 3.63 mill/uL (4.70-6.10); White Blood Cell (WBC) Count 4.88 10x3/uL (4.8-10.8)
[2025-01-31 07:50] LABS: Anion Gap 12 mmol/L (10-20); BUN (Urea Nitrogen) 20 mg/dL (8.4-25.7); Calc. Creatinine Clearance 44 mL/min (70-130); Calcium 8.3 mg/dL (7.8-10.44); Carbon Dioxide 22 mmol/L (23-31); Chloride 106 mmol/L (98-107); Glucose 197 mg/dL (83-110); Potassium 4.6 mmol/L (3.5-5.1); Sodium 135 mmol/L (136-145)
[2025-01-31] MEDS: Aspirin 81 mg Enteric Coated Tablet PO SCH (09:54)
[2025-01-31] MEDS: Carvedilol 6.25 MG TAB PO SCH (09:55)
[2025-01-31] MEDS: Insulin Glargine 30 UNITS/0.3 ML VIAL SC SCH (09:56)
[2025-01-31] MEDS: Senokot S 8.6-50 MG TAB PO SCH (21:05)
[2025-02-01 06:17] LABS: Anion Gap 14 mmol/L (10-20); BUN (Urea Nitrogen) 26 mg/dL (8.4-25.7); Calc. Creatinine Clearance 39 mL/min (70-130); Calcium 8.4 mg/dL (7.8-10.44); Carbon Dioxide 21 mmol/L (23-31); Chloride 104 mmol/L (98-107); Glucose 216 mg/dL (83-110); Potassium 4.9 mmol/L (3.5-5.1); Sodium 134 mmol/L (136-145)
[2025-02-01 06:38] LABS: #Basophils Less than 0.03 10x3/uL (0.0-0.2); #Eosinophils 0.14 10x3/uL (0.0-0.7); #Monocytes 0.52 10x3/uL (0.11-0.59); #Neutrophils 4.71 10x3/uL (1.40-6.50); %Basophils 0.3 % (0.0-1.0); %Eosinophils 2.0 % (0.0-10.0); %Lymphocytes 21.6 % (21.0-51.0); %Monocytes 7.5 % (0.0-10.0); %Neutrophils 68.2 % (42.0-75.0); Hematocrit 35.2 % (42.0-52.0); Hemoglobin 11.4 g/dL (14.0-18.0); Mean Corpuscular Hemoglobin 29.9 pg (27.0-31.0); Mean Corpuscular Volume 92.4 fL (78.0-98.0); Platelet Count 165 10x3/uL (130-400); Red Blood Cell (RBC) Count 3.81 mill/uL (4.70-6.10); White Blood Cell (WBC) Count 6.91 10x3/uL (4.8-10.8)
[2025-02-01] MEDS: Ketorolac Tromethamine 30 MG (1 mL) VIAL IVP SCH (13:25)
[2025-02-01] MEDS: Famotidine/PF 20 mg/2ml Vial SLOW IVP SCH (21:53)
[2025-02-02 05:48] LABS: #Basophils Less than 0.03 10x3/uL (0.0-0.2); #Eosinophils 0.17 10x3/uL (0.0-0.7); #Monocytes 0.78 10x3/uL (0.11-0.59); #Neutrophils 3.63 10x3/uL (1.40-6.50); %Basophils 0.2 % (0.0-1.0); %Eosinophils 2.6 % (0.0-10.0); %Lymphocytes 28.5 % (21.0-51.0); %Monocytes 12.1 % (0.0-10.0); %Neutrophils 56.4 % (42.0-75.0); Hematocrit 32.8 % (42.0-52.0); Hemoglobin 10.8 g/dL (14.0-18.0); Mean Corpuscular Hemoglobin 29.8 pg (27.0-31.0); Mean Corpuscular Volume 90.6 fL (78.0-98.0); Platelet Count 145 10x3/uL (130-400); Red Blood Cell (RBC) Count 3.62 mill/uL (4.70-6.10); White Blood Cell (WBC) Count 6.43 10x3/uL (4.8-10.8)
[2025-02-02 06:08] LABS: Anion Gap 11 mmol/L (10-20); BUN (Urea Nitrogen) 26 mg/dL (8.4-25.7); Calc. Creatinine Clearance 34 mL/min (70-130); Calcium 8.4 mg/dL (7.8-10.44); Carbon Dioxide 23 mmol/L (23-31); Chloride 106 mmol/L (98-107); Glucose 188 mg/dL (83-110); Potassium 4.3 mmol/L (3.5-5.1); Sodium 136 mmol/L (136-145)
[2025-02-02] MEDS ORDERED: METHOCARBAMOL IVPB SCH (10:00)
[2025-02-02] MEDS ORDERED: SODIUM CHLORIDE 0.9% IVPB SCH (10:00)
[2025-02-02] MEDS: cloNIDine 0.1 MG TAB PO PRN (22:12)
[2025-02-03 10:37] VITALS: BP 122/66; TEMP 97.3
== END 2025-02-03 12:05 | DRG 552 ==
LOC: ERS 07:58 → ERHOLD 14:05 → SURG B 22:10
PROVIDERS: ADMIT Surgery Trauma Surgery; ATTEND Surgery Trauma Surgery
DX: S32.039A Unspecified fracture of third lumbar vertebra, initial encounter for closed fracture (principal); I50.22 Chronic systolic (congestive) heart failure; I13.0 Hypertensive heart and chronic kidney disease with heart failure and stage 1 through stage 4 chronic kidney disease, or unspecified chronic kidney disease; E78.5 Hyperlipidemia, unspecified; I25.10 Atherosclerotic heart disease of native coronary artery without angina pectoris; F32.A Depression, unspecified; N18.30 Chronic kidney disease, stage 3 unspecified; E11.22 Type 2 diabetes mellitus with diabetic chronic kidney disease; W19.XXXA Unspecified fall, initial encounter; I25.2 Old myocardial infarction; Z95.810 Presence of automatic (implantable) cardiac defibrillator; Z86.73 Personal history of transient ischemic attack (TIA), and cerebral infarction without residual deficits; Z95.1 Presence of aortocoronary bypass graft; Z79.899 Other long term (current) drug therapy; Z79.82 Long term (current) use of aspirin
CPT/HCPCS: 36415; 36416; 70450; 71260; 72125; 74177; 80048; 80053; 82550; 85025; 96374; J1308; J1815; J1885; J2270; J7030; Q9967

== ENCOUNTER 2025-04-12 13:25 | Emergency (ER) | payer MEDICARE ==
[2025-04-12] MEDS ORDERED: Iopamidol-370 76% 500 ML MDV (1 ML CHARGE) ONE (13:36)
[2025-04-12 15:01] LABS: #Basophils 0.03 10x3/uL (0.0-0.2); #Eosinophils 0.10 10x3/uL (0.0-0.7); #Monocytes 0.82 10x3/uL (0.11-0.59); #Neutrophils 7.91 10x3/uL (1.40-6.50); %Basophils 0.3 % (0.0-1.0); %Eosinophils 0.9 % (0.0-10.0); %Lymphocytes 18.2 % (21.0-51.0); %Monocytes 7.5 % (0.0-10.0); %Neutrophils 72.6 % (42.0-75.0); Hematocrit 37.5 % (42.0-52.0); Hemoglobin 12.4 g/dL (14.0-18.0); Mean Corpuscular Hemoglobin 29.9 pg (27.0-31.0); Mean Corpuscular Volume 90.4 fL (78.0-98.0); Platelet Count 202 10x3/uL (130-400); Red Blood Cell (RBC) Count 4.15 mill/uL (4.70-6.10); White Blood Cell (WBC) Count 10.91 10x3/uL (4.8-10.8)
[2025-04-12 15:23] LABS: ALT (SGPT) 47 U/L (Less than 45); AST (SGOT) 46 U/L (11-34); Albumin 3.2 g/dL (3.1-4.5); Alkaline Phosphatase 98 U/L (40-110); Anion Gap 19 mmol/L (10-20); BUN (Urea Nitrogen) 33 mg/dL (8.4-25.7); Bilirubin, Total 0.9 mg/dL (0.3-1.2); Calc. Creatinine Clearance 0 mL/min (70-130); Calcium 9.0 mg/dL (7.8-10.44); Carbon Dioxide 18 mmol/L (23-31); Chloride 102 mmol/L (98-107); Globulin 4.0 g/dL (2.4-3.5); Glucose 300 mg/dL (83-110); Potassium 4.9 mmol/L (3.5-5.1); Sodium 134 mmol/L (136-145)
[2025-04-12 15:24] LABS: Acetaminophen Less than 10 mcg/mL (Less than 10); Salicylate Less than 8.0 mg/dL (Less than 8.0)
[2025-04-12 16:23] LABS: Bacteria/HPF None Seen HPF (None Seen); CAUTI Indications for Culture Alt mental st,lethar; Glucose, Urine (Dipstick) Greater than 1000 mg/dL (Negative); Leukocyte 250 Leu/uL (Negative); Protein, Urine (Dipstick) Negative (Neg-Trace); RBC/HPF 0-3 HPF (0-3); Specific Gravity, Urine 1.032 (1.002-1.036); WBC/HPF 0-3 HPF (0-3)
[2025-04-12 16:25] LABS: Cocaine Metabolite Screen Negative (Negative); THC/Cannabinoid Screen Negative (Negative); Tricyclic Screen Negative (Negative)
[2025-04-12 16:31] LABS: Urine Culture Reflex No No
[2025-04-12] MEDS ORDERED: cefTRIAXone (ROCEPHIN) 1 GM VIAL ONE (17:19)
[2025-04-12 18:07] LABS: Actual Bicarbonate (HCO3v) 18.8 mEq/L (22-28); Analyzer IN Cardio ER; Base Excess -8.0 mEq/L (-2.0 to +3.0); Calcium, Ionized (venous) 1.07 mmol/L (1.16-1.32); Chloride (VBG) 102 mmol/L (98-106); Hematocrit-VBG 38 % (42.0-52.0); Hemoglobin (Hb) 13.0 g/dL (12.6-17.4); Potassium (VBG) 4.63 mmol/L (3.70-5.30); Sodium 134 mmol/L (133-146)
[2025-04-12] MEDS ORDERED: Ondansetron PF 4 MG/2 ML Vial ONE (18:14)
== END 2025-04-12 18:22 | disposition home or self-care (01) ==
LOC: ERS 13:25
DX: S32.019A Unspecified fracture of first lumbar vertebra, initial encounter for closed fracture (principal); E11.9 Type 2 diabetes mellitus without complications; I25.10 Atherosclerotic heart disease of native coronary artery without angina pectoris; N39.0 Urinary tract infection, site not specified; E86.0 Dehydration; I10 Essential (primary) hypertension; I25.2 Old myocardial infarction; Z95.1 Presence of aortocoronary bypass graft; Z95.0 Presence of cardiac pacemaker; X58.XXXA Exposure to other specified factors, initial encounter
CPT/HCPCS: 70450; 71045; 74177; 80053; 80306; 80307; 81001; 82805; 85025; 87077; 87086; 87186; 93005; J0696; Q9967; 36415; 96361; 96365; 96375

== ENCOUNTER 2025-04-14 13:14 | Inpatient (IN) | payer MEDICARE ==
[~2025-04-14 13:14] MED LIST changes: -Iopamidol-370 76% 500 ML 1 ML ONE; +Iopamidol-370 76% 500 ML MDV (1 ML CHARGE) ONE
[2025-04-14 14:13] LABS: #Basophils Less than 0.03 10x3/uL (0.0-0.2); #Eosinophils Less than 0.03 10x3/uL (0.0-0.7); #Monocytes 0.79 10x3/uL (0.11-0.59); #Neutrophils 15.25 10x3/uL (1.40-6.50); %Basophils 0.1 % (0.0-1.0); %Eosinophils 0.0 % (0.0-10.0); %Lymphocytes 9.1 % (21.0-51.0); %Monocytes 4.4 % (0.0-10.0); %Neutrophils 85.8 % (42.0-75.0); Hematocrit 38.9 % (42.0-52.0); Hemoglobin 12.2 g/dL (14.0-18.0); Mean Corpuscular Hemoglobin 30.1 pg (27.0-31.0); Mean Corpuscular Volume 96.0 fL (78.0-98.0); Platelet Count 196 10x3/uL (130-400); Red Blood Cell (RBC) Count 4.05 mill/uL (4.70-6.10); White Blood Cell (WBC) Count 17.77 10x3/uL (4.8-10.8)
[2025-04-14] MEDS: VANCOMYCIN 1.75 GM/350 ML BAG 1.75 GM in Premix 1 BAG IVPB SCH (14:26)
[2025-04-14 14:45] LABS: ALT (SGPT) 32 U/L (Less than 45); AST (SGOT) 18 U/L (11-34); Albumin 2.9 g/dL (3.1-4.5); Alkaline Phosphatase 90 U/L (40-110); Anion Gap 28 mmol/L (10-20); BUN (Urea Nitrogen) 51 mg/dL (8.4-25.7); Bilirubin, Total 0.4 mg/dL (0.3-1.2); Calc. Creatinine Clearance 0 mL/min (70-130); Calcium 8.8 mg/dL (7.8-10.44); Carbon Dioxide 8 mmol/L (23-31); Chloride 110 mmol/L (98-107); Globulin 3.7 g/dL (2.4-3.5); Glucose 306 mg/dL (83-110); Lipase 29 U/L (8-78); Potassium 5.5 mmol/L (3.5-5.1); Sodium 140 mmol/L (136-145)
[2025-04-14 15:23] LABS: Analyzer IN Cardio ER; Base Excess -16.3 mEq/L (-2.0 to +3.0); Calcium, Ionized (venous) 1.24 mmol/L (1.16-1.32); Chloride (VBG) 106 mmol/L (98-106); Hematocrit-VBG 41 % (42.0-52.0); Hemoglobin (Hb) 13.8 g/dL (12.6-17.4); Potassium (VBG) 5.34 mmol/L (3.70-5.30); Sodium 139 mmol/L (133-146)
[2025-04-14] MEDS ORDERED: INSULIN REGULAR IN 0.9 % NACL 100 ML ONE (15:57)
[2025-04-14 16:23] LABS: CAUTI Indications for Culture Alt mental st,lethar; Glucose, Urine (Dipstick) Greater than 1000 mg/dL (Negative); Leukocyte Negative Leu/uL (Negative); Protein, Urine (Dipstick) 10 mg/dL (Neg-Trace); Specific Gravity, Urine 1.029 (1.002-1.036); WBC/HPF 0-3 HPF (0-3)
[2025-04-14 16:24] LABS: Bacteria/HPF 1+ HPF (None Seen)
[2025-04-14 16:25] LABS: Urine Culture Reflex No No
[2025-04-14] MEDS ORDERED: Dextrose 50% Abboject 50 ML SYRINGE SLOW IVP PRN (16:51)
[2025-04-14] MEDS ORDERED: Guaifenesin DM 100-10/5 ML UDCUP PO PRN (16:51)
[2025-04-14] MEDS ORDERED: Calcium Carbonate 500 MG ChewTAB PO PRN (16:51)
[2025-04-14] MEDS ORDERED: NS 0.9% w/ 20 MEQ KCL 1,000 ML IV PRN ×2 (16:51→21:29)
[2025-04-14] MEDS ORDERED: INSULIN REGULAR IN 0.9 % NACL 100 ML IVPB SCH (17:00)
[2025-04-14] MEDS: Acetaminophen 325 MG TAB PO SCH (17:19)
[2025-04-14 17:39] LABS: Anion Gap 22 mmol/L (10-20); BUN (Urea Nitrogen) 49 mg/dL (8.4-25.7); Calc. Creatinine Clearance 37 mL/min (70-130); Calcium 8.1 mg/dL (7.8-10.44); Carbon Dioxide 10 mmol/L (23-31); Chloride 110 mmol/L (98-107); Glucose 264 mg/dL (83-110); Magnesium 2.2 mg/dL (1.6-2.6); Potassium 4.4 mmol/L (3.5-5.1); Sodium 138 mmol/L (136-145)
[2025-04-14] MEDS: Ciprofloxacin Lactate/D5W 400 MG in Premix 1 BAG IVPB SCH (20:00)
[2025-04-14] MEDS: Heparin 5,000 UNITS/ML VIAL SC SCH (20:01)
[2025-04-14 21:34] LABS: Anion Gap 18 mmol/L (10-20); BUN (Urea Nitrogen) 48 mg/dL (8.4-25.7); Calc. Creatinine Clearance 38 mL/min (70-130); Calcium 8.5 mg/dL (7.8-10.44); Carbon Dioxide 15 mmol/L (23-31); Chloride 114 mmol/L (98-107); Glucose 179 mg/dL (83-110); Potassium 4.7 mmol/L (3.5-5.1); Sodium 142 mmol/L (136-145)
[2025-04-14] MEDS: D5 1/2 NS w/20 mEq KCL 1,000 ML IV PRN (21:41)
[2025-04-15 02:36] LABS: Anion Gap 15 mmol/L (10-20); BUN (Urea Nitrogen) 43 mg/dL (8.4-25.7); Calc. Creatinine Clearance 41 mL/min (70-130); Calcium 7.9 mg/dL (7.8-10.44); Carbon Dioxide 17 mmol/L (23-31); Chloride 113 mmol/L (98-107); Glucose 145 mg/dL (83-110); Potassium 3.9 mmol/L (3.5-5.1); Sodium 141 mmol/L (136-145)
[2025-04-15] MEDS: Potassium Chloride 20 MEQ in Premix 1 BAG IVPB SCH (02:55)
[2025-04-15] MEDS: Insulin Glargine 30 UNITS/0.3 ML VIAL SC SCH ×3 (02:56→21:50)
[2025-04-15 03:23] LABS: #Basophils Less than 0.03 10x3/uL (0.0-0.2); #Eosinophils Less than 0.03 10x3/uL (0.0-0.7); #Monocytes 1.44 10x3/uL (0.11-0.59); #Neutrophils 13.18 10x3/uL (1.40-6.50); %Basophils 0.1 % (0.0-1.0); %Eosinophils 0.1 % (0.0-10.0); %Lymphocytes 9.6 % (21.0-51.0); %Monocytes 8.8 % (0.0-10.0); %Neutrophils 80.8 % (42.0-75.0); Hematocrit 35.0 % (42.0-52.0); Hemoglobin 11.3 g/dL (14.0-18.0); Mean Corpuscular Hemoglobin 29.7 pg (27.0-31.0); Mean Corpuscular Volume 92.1 fL (78.0-98.0); Platelet Count 181 10x3/uL (130-400); Red Blood Cell (RBC) Count 3.80 mill/uL (4.70-6.10); White Blood Cell (WBC) Count 16.32 10x3/uL (4.8-10.8)
[2025-04-15 03:45] LABS: Vancomycin, Random 17.2 ug/mL (See Comment)
[2025-04-15 03:47] LABS: Anion Gap 14 mmol/L (10-20); BUN (Urea Nitrogen) 42 mg/dL (8.4-25.7); Calc. Creatinine Clearance 41 mL/min (70-130); Calcium 8.3 mg/dL (7.8-10.44); Carbon Dioxide 16 mmol/L (23-31); Chloride 115 mmol/L (98-107); Glucose 128 mg/dL (83-110); Potassium 4.1 mmol/L (3.5-5.1); Sodium 141 mmol/L (136-145)
[2025-04-15] MEDS: Rosuvastatin 20 MG TAB PO SCH (08:36)
[2025-04-15] MEDS: Pantoprazole 40 MG DR.TAB PO SCH ×2 (08:36→21:51)
[2025-04-15] MEDS: Ezetimibe 10 MG TAB PO SCH (08:36)
[2025-04-15] MEDS: Carvedilol 6.25 MG TAB PO SCH (08:36)
[2025-04-15] MEDS: Aspirin Chewable 81 MG TAB PO SCH (08:36)
[2025-04-15] MEDS: Vancomycin 1 GM in Premix 1 BAG IVPB SCH (11:44)
[2025-04-15] MEDS ORDERED: Glucagon 1 MG/ML KIT IM PRN (11:58)
[2025-04-16 06:41] LABS: Anion Gap 13 mmol/L (10-20); BUN (Urea Nitrogen) 29 mg/dL (8.4-25.7); Calc. Creatinine Clearance 48 mL/min (70-130); Calcium 8.2 mg/dL (7.8-10.44); Carbon Dioxide 17 mmol/L (23-31); Chloride 114 mmol/L (98-107); Glucose 111 mg/dL (83-110); Potassium 3.9 mmol/L (3.5-5.1); Sodium 140 mmol/L (136-145)
[2025-04-16 11:03] LABS: Actual Bicarbonate (HCO3v) 10.0 mEq/L (22-28)
[2025-04-17 05:10] LABS: Anion Gap 7 mmol/L (10-20); BUN (Urea Nitrogen) 22 mg/dL (8.4-25.7); Calc. Creatinine Clearance 53 mL/min (70-130); Calcium 7.7 mg/dL (7.8-10.44); Carbon Dioxide 19 mmol/L (23-31); Chloride 113 mmol/L (98-107); Glucose 96 mg/dL (83-110); Potassium 3.3 mmol/L (3.5-5.1); Sodium 136 mmol/L (136-145)
[2025-04-17] MEDS: FLU (Fluad Triv) 25-26 (65UP)PF 45 MCG/0.5 ML Syringe IM ONE (18:24)
[2025-04-18 04:54] LABS: #Basophils Less than 0.03 10x3/uL (0.0-0.2); #Eosinophils 0.12 10x3/uL (0.0-0.7); #Monocytes 0.66 10x3/uL (0.11-0.59); #Neutrophils 4.86 10x3/uL (1.40-6.50); %Basophils 0.3 % (0.0-1.0); %Eosinophils 1.7 % (0.0-10.0); %Lymphocytes 19.9 % (21.0-51.0); %Monocytes 9.3 % (0.0-10.0); %Neutrophils 68.2 % (42.0-75.0); Hematocrit 27.9 % (42.0-52.0); Hemoglobin 9.3 g/dL (14.0-18.0); Mean Corpuscular Hemoglobin 30.3 pg (27.0-31.0); Mean Corpuscular Volume 90.9 fL (78.0-98.0); Platelet Count 127 10x3/uL (130-400); Red Blood Cell (RBC) Count 3.07 mill/uL (4.70-6.10); White Blood Cell (WBC) Count 7.12 10x3/uL (4.8-10.8)
[2025-04-18 05:12] LABS: Vancomycin, Random 18.6 ug/mL (See Comment)
[2025-04-18 05:25] LABS: Anion Gap 8 mmol/L (10-20); BUN (Urea Nitrogen) 21 mg/dL (8.4-25.7); Calc. Creatinine Clearance 47 mL/min (70-130); Calcium 7.6 mg/dL (7.8-10.44); Carbon Dioxide 20 mmol/L (23-31); Chloride 110 mmol/L (98-107); Glucose 158 mg/dL (83-110); Potassium 3.5 mmol/L (3.5-5.1); Sodium 134 mmol/L (136-145)
[2025-04-18] MEDS ORDERED: Aluminum & Magnesium Hydroxide 60 ML, diphenhydrAMINE 150 MG, Lidocaine 2% Viscous Solu... SSW PRN (13:27)
[2025-04-18] MEDS ORDERED: MAGIC MOUTH WASH W/NYSTATIN SUSP 10 ML UDCUP SSW PRN (13:34)
[2025-04-18] MEDS: Senokot S 8.6-50 MG TAB PO SCH (20:29)
[2025-04-19 05:43] LABS: #Basophils Less than 0.03 10x3/uL (0.0-0.2); #Eosinophils 0.12 10x3/uL (0.0-0.7); #Monocytes 0.71 10x3/uL (0.11-0.59); #Neutrophils 4.14 10x3/uL (1.40-6.50); %Basophils 0.3 % (0.0-1.0); %Eosinophils 1.8 % (0.0-10.0); %Lymphocytes 24.1 % (21.0-51.0); %Monocytes 10.7 % (0.0-10.0); %Neutrophils 62.2 % (42.0-75.0); Hematocrit 29.7 % (42.0-52.0); Hemoglobin 9.8 g/dL (14.0-18.0); Mean Corpuscular Hemoglobin 29.7 pg (27.0-31.0); Mean Corpuscular Volume 90.0 fL (78.0-98.0); Platelet Count 149 10x3/uL (130-400); Red Blood Cell (RBC) Count 3.30 mill/uL (4.70-6.10); White Blood Cell (WBC) Count 6.65 10x3/uL (4.8-10.8)
[2025-04-19 06:00] LABS: Anion Gap 8 mmol/L (10-20); BUN (Urea Nitrogen) 18 mg/dL (8.4-25.7); Calc. Creatinine Clearance 45 mL/min (70-130); Calcium 7.9 mg/dL (7.8-10.44); Carbon Dioxide 23 mmol/L (23-31); Chloride 109 mmol/L (98-107); Glucose 108 mg/dL (83-110); Potassium 3.5 mmol/L (3.5-5.1); Sodium 136 mmol/L (136-145)
[2025-04-19 21:01] VITALS: BMI 25.8
[2025-04-20 11:20] LABS: Anion Gap 10 mmol/L (10-20); BUN (Urea Nitrogen) 16 mg/dL (8.4-25.7); Calc. Creatinine Clearance 52 mL/min (70-130); Calcium 7.5 mg/dL (7.8-10.44); Carbon Dioxide 23 mmol/L (23-31); Chloride 108 mmol/L (98-107); Glucose 138 mg/dL (83-110); Potassium 3.8 mmol/L (3.5-5.1); Sodium 137 mmol/L (136-145)
[2025-04-20 11:23] LABS: Vancomycin, Random 18.4 ug/mL (See Comment)
[2025-04-20 14:50] VITALS: BP 105/69; TEMP 98.1
== END 2025-04-20 14:45 | DRG 637 ==
LOC: ERS 13:14 → ERHOLD 16:43 → IMCU/EMU 18:25 → MSONC 04-15 14:00
PROVIDERS: ADMIT Internal Medicine; ATTEND Hospitalist
DX: E11.10 Type 2 diabetes mellitus with ketoacidosis without coma (principal); A41.9 Sepsis, unspecified organism; G93.41 Metabolic encephalopathy; S32.019A Unspecified fracture of first lumbar vertebra, initial encounter for closed fracture; N30.00 Acute cystitis without hematuria; I50.42 Chronic combined systolic (congestive) and diastolic (congestive) heart failure; N17.9 Acute kidney failure, unspecified; N18.30 Chronic kidney disease, stage 3 unspecified; I25.10 Atherosclerotic heart disease of native coronary artery without angina pectoris; E87.5 Hyperkalemia; K29.80 Duodenitis without bleeding; G30.9 Alzheimer's disease, unspecified; Z95.5 Presence of coronary angioplasty implant and graft; Z95.1 Presence of aortocoronary bypass graft; Z79.4 Long term (current) use of insulin; Z79.82 Long term (current) use of aspirin; Z23 Encounter for immunization; E86.0 Dehydration; I10 Essential (primary) hypertension; I25.2 Old myocardial infarction; Z95.0 Presence of cardiac pacemaker; X58.XXXA Exposure to other specified factors, initial encounter
CPT/HCPCS: 36415; 36416; 51702; 70450; 71045; 74177; 80048; 80053; 80202; 80306; 80307; 81001; 82010; 82805; 83605; 83690; 83735; 83880; 84100; 85025; 87040; 87077; 87086; 87186; 93005; 96361; 96365; 96374; 96375; J0696; J0744; J1644; J1815; J2405; J3373; J3375; J3480; J7030; Q9967